=== PATIENT | female | born 1985 | race Two or more races ===

== ENCOUNTER 2017-09-25 11:30 | Emergency (ER) | payer SELFPAY ==
[~2017-09-25] VITALS: Ht 172.7 cm; Wt 73.1 kg
[2017-09-25] MEDS ORDERED: FLEXERIL10 MG PO (14:50)
[2017-09-25] MEDS ORDERED: MOTRIN800 MG PO (14:50)
[2017-09-25 15:30] VITALS: BP 101/79
== END 2017-09-25 15:31 | disposition home or self-care (01) ==
LOC: EME 11:30
DX: S43.402A Unspecified sprain of left shoulder joint, initial encounter (principal); M62.838 Other muscle spasm; M79.602 Pain in left arm; Y04.0XXA Assault by unarmed brawl or fight, initial encounter; Y07.01 Husband, perpetrator of maltreatment and neglect
CPT/HCPCS: 73030; 99281; 99284